=== PATIENT | female | born 1950 | race Caucasian/White ===

== ENCOUNTER 2017-03-03 09:43 | Day surgery (SDC) | payer MEDICARE ==
[~2017-03-03] VITALS: Ht 157.5 cm; Wt 59.4 kg
[~2017-03-03 09:43] MED LIST: CALC-766 PO; CHOL200049 PO; DULO30CA50 PO; ESTRADIOL TOPICAL; FISH1CAP15 PO; GABA-502 PO; IMI25 PO; LACT1CAP65 PO; LEVO100T6 PO; LINA290C PO; ONDA4TAB6 PO; OXIT5POW MC; PROGESTERONE TOPICAL; ROB500 PO; Sodium Chloride LOK Flush 10 mL Syringe IV PRN; TRAZ-118 PO; UBID100C16 PO; [UNRECOGNIZED DRUG - CODE] PO; fentaNYL-PF 50 mCg/mL 2 mL Inj IVPUSH PRN
[2017-03-03 11:17] VITALS: BP 136/71; PULSE 76; RESP 16; O2SAT 100
[2017-03-03] MEDS: 0.9% Sodium Chloride 1,000 ML IV SCH ×2 (12:00→12:10)
[2017-03-03 12:21] VITALS: BP 103/55; PULSE 71; RESP 12; O2SAT 97
[2017-03-03 12:31] VITALS: BP 109/56; PULSE 68; RESP 12; O2SAT 97
[2017-03-03 12:39] VITALS: BP 123/65; PULSE 69; RESP 14; O2SAT 99
[2017-03-03 12:48] VITALS: BP 114/65; PULSE 75; RESP 14; O2SAT 97
--- NOTE | 2017-03-03 18:42 | ENDO ---
[address] [address] ENDOSCOPY PROCEDURE PATIENT: GASTON MOLINA : 1950 MR#: [id number] ADMIT: 03/03/2017 JOB ID: [id number] DATE: 03/03/2017 PROCEDURE: Colonoscopy. INDICATION: Patient with a history of adenomatous colon polyps. Patient's ASA classification is II. Mallampati score is II. MEDICATIONS: Please see nurse's notes for details regarding sedation. INSTRUMENT USED: [id number]. Prep quality was poor. PROCEDURE DETAILS: After informed consent was obtained, the patient was brought to the GI suite, where she was placed on oxygen via nasal cannula and monitored with continuous pulse oximeter, telemetry, and blood pressure monitoring. A time-out was performed. Then, she was placed in a left lateral decubitus position and medications were administered for sedation. Digital rectal exam was performed and was unremarkable. Colonoscope was then inserted into the rectum and advanced to the cecum, which was identified by the presence of the ileocecal valve. I was unable to identify the appendiceal orifice as there was moderate amount of stool debris that we were unable to clear despite suctioning and irrigation. The colonoscope was then withdrawn back into the rectum. As we withdrew, there was semi-solid stool in the ascending and descending colon that we were unable to clear. Therefore, views were limited. IMPRESSION: Poor prep. RECOMMENDATIONS: Repeat colonoscopy with a two-day prep. COMPLICATIONS: None. ESTIMATED BLOOD LOSS: Less than 5 mL.
== END 2017-03-03 23:59 | disposition home or self-care (01) ==
LOC: END 09:43
PROVIDERS: ATTEND Internal Medicine Gastroenterology
DX: Z12.11 Encounter for screening for malignant neoplasm of colon (principal); Z86.010 Personal history of colon polyps; K58.1 Irritable bowel syndrome with constipation
CPT/HCPCS: G0105; G0500; J2250; J3010; J7030